=== PATIENT | male | born 1970 | race Caucasian/White ===

== ENCOUNTER 2017-04-28 06:17 | Emergency (ER) | payer BC ==
[~2017-04-28] VITALS: Ht 167.6 cm; Wt 65.8 kg
[2017-04-28] MEDS ORDERED: KETO10TA2 PO (07:56)
== END 2017-04-28 08:08 | disposition home or self-care (01) ==
LOC: ER 06:17
DX: H10.89 Other conjunctivitis (principal)

== ENCOUNTER 2017-07-07 20:09 | Emergency (ER) | payer BC ==
[~2017-07-07] VITALS: Ht 167.6 cm; Wt 65.8 kg
[~2017-07-07 20:09] MED LIST: KETO10TA2 PO
[2017-07-08] MEDS ORDERED: LEVAQUIN750 MG PO (03:02)
[2017-07-08] MEDS ORDERED: KETO10TA2 PO (03:02)
[2017-07-08] MEDS ORDERED: FLONASE ALLERG9.9 ML NASAL (03:02)
== END 2017-07-08 04:34 | disposition home or self-care (01) ==
LOC: ER 20:09
DX: B34.9 Viral infection, unspecified (principal); J32.8 Other chronic sinusitis; N39.0 Urinary tract infection, site not specified